=== PATIENT | female | born 1980 | race Caucasian/White ===

== ENCOUNTER 2017-07-15 05:34 | Emergency (ER) | payer MEDICAID, OTHER ==
[~2017-07-15] VITALS: Ht 170.2 cm; Wt 46.3 kg
[2017-07-15 05:44] VITALS: BP 119/79
[2017-07-15] MEDS ORDERED: KETOROLAC TROMETH 30 MG/ML 1ML VIAL IM ONE (06:15)
[2017-07-15] MEDS ORDERED: CYCLOBENZAPRINE HCL 10 MG TAB PO ONE ×2 (06:15→06:30)
[2017-07-15] MEDS ORDERED: KETOROLAC TROMETH 60MG/2ML VIAL IM ONE (06:30)
== END 2017-07-15 07:24 | disposition home or self-care (01) ==
LOC: ER 05:39
DX: M54.5 Low back pain (principal); M79.1 Myalgia; Z88.0 Allergy status to penicillin
CPT/HCPCS: 72040; 72100; 96372; 99284; J1885